=== PATIENT | male | born 1995 | race African-American/Black ===

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

== ENCOUNTER 2019-04-20 23:07 | Emergency (ER) | payer OTHER ==
[2019-04-20 23:16] VITALS: BP 136/69; PULSE 86; TEMP 98; BMI 23.7
[2019-04-20] MEDS ORDERED: KETOROLAC TROMETHAMINE 60 MG/2 ML VIAL IM ONE (23:16)
[2019-04-20] MEDS ORDERED: KETOROLAC TROMETHAMINE 60 MG/2 ML VIAL ONE (23:16)
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
== END 2019-04-21 00:01 | disposition home or self-care (01) ==
LOC: FER 23:07
PROC: 3E0233Z Introduction of Anti-inflammatory into Muscle, Percutaneous Approach (ICD-10-PCS; principal; 2019-04-20)
DX: Z04.1 Encounter for examination and observation following transport accident (principal); S16.1XXA Strain of muscle, fascia and tendon at neck level, initial encounter
CPT/HCPCS: 72050-TC-FY; 99284-25